=== PATIENT | female | born 1990 | race Caucasian/White ===

== ENCOUNTER 2023-06-03 09:29 | Emergency (ER) | payer OTHER ==
[2023-06-03 09:46] VITALS: BP 120/92; PULSE 83; RESP 19; TEMP 98.7; BMI 31.6
[2023-06-03] MEDS: IBUPROFEN 600 MG TABLET (FP) PO ONE (10:47)
== END 2023-06-03 12:37 | disposition home or self-care (01) ==
LOC: JERFT 09:29
DX: M25.571 Pain in right ankle and joints of right foot (principal); S93.491A Sprain of other ligament of right ankle, initial encounter; R22.41 Localized swelling, mass and lump, right lower limb; X50.1XXA Overexertion from prolonged static or awkward postures, initial encounter
CPT/HCPCS: 73610-TC-RT-FY; 99283-25